=== PATIENT | male | born 1965 | race Caucasian/White ===

== ENCOUNTER 2017-05-23 08:01 | Day surgery (SDC) | payer MEDICAID ==
[2017-05-23] MEDS ORDERED: NS 1,000 ML IV ONE (08:07)
[2017-05-23] MEDS ORDERED: DIAZEPAM 5 MG TAB PO ONE (08:07)
[2017-05-23] MEDS ORDERED: ASPIRIN EC 325 MG TAB PO ONE (08:07)
[2017-05-23] MEDS ORDERED: diphenhydrAMINE 25 MG CAP PO ONE (08:07)
[2017-05-23] MEDS ORDERED: FAMOTIDINE 20 MG TAB PO ONE (08:07)
--- NOTE | 2017-05-23 08:30 | CPEKG ---
Heart Rate: 66 RR Interval: 909 P-R Interval: 156 QRSD Interval: 110 QT Interval: 428 QTC Interval: 449 P Garden: 15 QRS Garden: -53 T Wave Garden: 93 EKG Severity - ABNORMAL ECG - EKG Impression: SINUS RHYTHM EKG Impression: INCOMPLETE LEFT BUNDLE BRANCH BLOCK Electronically Signed By: Krzysztof De La Paz 23-May-2017 16:18:21
[2017-05-23 08:47] LABS: PLATELET COUNT 333 10^3/uL (150-400)
[2017-05-23 08:57] LABS: INR 0.97 (0.83-1.16); PROTIME(PATIENT) 13.1 SEC (12.0-15.0)
[2017-05-23] MEDS ORDERED: LIDOCAINE 1% 300 MG/30 ML SDV ONE (09:34)
[2017-05-23] MEDS ORDERED: MIDAZOLAM 2 MG/2 ML VIAL ONE (09:35)
[2017-05-23] MEDS ORDERED: fentaNYL 100 MCG/2 ML INJ ONE (09:35)
[2017-05-23] MEDS ORDERED: IOPAMIDOL (ISOVUE-370) 150 ML BTL IV ONE (09:35)
== END 2017-05-23 14:06 | disposition home or self-care (01) ==
LOC: FCATH 08:01
PROVIDERS: ATTEND Internal Medicine Cardiovascular Disease
DX: R07.9 Chest pain, unspecified (principal); Z53.09 Procedure and treatment not carried out because of other contraindication; I25.10 Atherosclerotic heart disease of native coronary artery without angina pectoris; B85.0 Pediculosis due to Pediculus humanus capitis; R55 Syncope and collapse; R94.31 Abnormal electrocardiogram [ECG] [EKG]; I25.5 Ischemic cardiomyopathy; I25.2 Old myocardial infarction; I73.9 Peripheral vascular disease, unspecified; E78.5 Hyperlipidemia, unspecified; F31.9 Bipolar disorder, unspecified; Z87.891 Personal history of nicotine dependence; Z95.1 Presence of aortocoronary bypass graft; Z95.5 Presence of coronary angioplasty implant and graft; Z82.49 Family history of ischemic heart disease and other diseases of the circulatory system
CPT/HCPCS: J1644; J2250; J3010; Q9967